=== PATIENT | female | born 2000 | race African-American/Black ===

== ENCOUNTER 2021-11-24 12:49 | Emergency (ER) | payer OTHER ==
[~2021-11-24] VITALS: Ht 165.1 cm; Wt 70.0 kg
[2021-11-24 13:02] VITALS: BP 108/68
[2021-11-24] MEDS ORDERED: IBUP-1653 PO (13:11)
[2021-11-24] MEDS ORDERED: TETRACAINE 0.5% OPHTH DROPS 4ML LEFTEYE ONE (16:30)
[2021-11-24] MEDS ORDERED: FLUORESCEIN SODIUM 1MG/STRIP LEFTEYE ONE (16:30)
== END 2021-11-24 17:07 | disposition left against medical advice (07) ==
LOC: ER 12:49
DX: Z53.21 Procedure and treatment not carried out due to patient leaving prior to being seen by health care provider (principal)